=== PATIENT | male | born 1975 | race Caucasian/White ===

== ENCOUNTER 2017-03-11 05:11 | Inpatient (IN) | payer MEDICAID | END 2017-03-12 13:13 | disposition home or self-care (01) | DRG 473 | LOC: D.ICU 05:11 | PROVIDERS: ADMIT Neurological Surgery | PROC: 0RG20Z0 (ICD-10-PCS; principal; 2017-03-11) | PROC: 0RB30ZZ Excision of Cervical Vertebral Disc, Open Approach (ICD-10-PCS; 2017-03-11) | DX: M50.122 Cervical disc disorder at C5-C6 level with radiculopathy (principal); M50.123 Cervical disc disorder at C6-C7 level with radiculopathy; M25.78 Osteophyte, vertebrae; I10 Essential (primary) hypertension ==

== ENCOUNTER 2017-10-26 14:21 | Emergency (ER) | payer BC ==
[2017-03-12 10:15] VITALS: BMI 25.3
[~2017-10-26 14:21] MED LIST: HYDROCODONE-APA1 TAB PO; KLONOPIN1 MG PO; LISINOPRIL5 MG PO; METOPROLOL TART25 MG PO
[2017-10-26 20:15] LABS: BASOPHILS 0.4 % (0-2); EOSINOPHILS 3.8 % (0-7); HEMATOCRIT 39.5 % (42.0-54.0); HEMOGLOBIN 13.4 g/dL (13.5-17.5); IMMATURE GRANULOCYTES 0.2 % (0-5); LYMPHOCYTES 31.6 % (15-50); MCH 32.2 pg (26.0-34.0); MCHC 33.9 g/dL (31.0-37.0); MEAN PLATELET VOLUME 9.7 fL (7.4-10.4); MONOCYTES 8.7 % (2-11); NEUTROPHILS 55.3 % (40-80); PLATELET COUNT 325 10x3/uL (130-400); RBC 4.16 10x6/uL (4.20-6.10); RDW 12.8 % (11.5-14.5); WBC 5.5 10x3/uL (4.8-10.8)
[2017-10-26 20:31] LABS: ALBUMIN 3.3 g/dL (3.4-5.0); ALKALINE PHOSPHATASE 90 U/L (46-116); ALT (SGPT) 35 U/L (10-68); BILIRUBIN - TOTAL 0.24 mg/dL (0.2-1.3); CALC OSMOLALITY 281 mosm/kg (275-300); CALCIUM 8.5 mg/dL (8.5-10.1); CARBON DIOXIDE 28.2 mmol/L (21.0-32.0); CHLORIDE - SERUM 104 mmol/L (98-107); GLUCOSE 95 mg/dL (74-106); POTASSIUM - SERUM 3.4 mmol/L (3.5-5.1); PROTEIN - SERUM 7.6 g/dL (6.4-8.2); SODIUM 142 mmol/L (136-145); UREA NITROGEN 10 mg/dL (7-18); eGFR NON AFRICAN AMERICAN 87 mL/min (90-120)
== END 2017-10-26 21:23 | disposition home or self-care (01) ==
LOC: D.ER 14:21
PROVIDERS: Physician Assistant
DX: T81.31XA Disruption of external operation (surgical) wound, not elsewhere classified, initial encounter (principal); N49.2 Inflammatory disorders of scrotum

== ENCOUNTER 2019-06-14 14:39 | Emergency (ER) | payer MEDICAID ==
[~2019-06-14] VITALS: Ht 180.3 cm; Wt 75.0 kg
[2019-06-14 14:42] VITALS: BP 137/98; Ht 180.3 cm; Wt 75.0 kg
[2019-06-14] MEDS ORDERED: TRIAMTERENE-HC1 EAC3 PO (14:43)
== END 2019-06-14 17:40 | disposition left against medical advice (07) ==
LOC: D.ER 14:39
DX: T18.5XXA Foreign body in anus and rectum, initial encounter (principal)